=== PATIENT | male | born 1950 | race Caucasian/White ===

== ENCOUNTER 2019-01-24 16:54 | Outpatient (CLI) | payer MEDICARE ==
--- NOTE | 2019-01-24 18:23 | Ultrasound Report ---
Reason: ACUTE EMBOLISM AND THOMBOS UNSP DEEP VEINS OF R LO Procedure Date: 01/24/2019 Accession Number: [id number] / [id number] Procedure: US - Duplex Ext Veins Bilateral CPT Code: FULL RESULT: EXAM: BILATERAL LOWER EXTREMITY VENOUS ULTRASOUND EXAM DATE: 01/24/2019 05:42 PM. CLINICAL HISTORY: ACUTE EMBOLISM AND THOMBOS UNSP DEEP VEINS OF R LO. COMPARISON: 01/24/2019 5:48 PM DUPLEX EXT VEINS RIGHT 03/27/2016 5:49 PM. TECHNIQUE: Real-time sonographic vascular imaging was performed by the cage unloader through the lower extremities utilizing both color-flow and Doppler spectral analysis. Multiple client account representative static images were saved for review. FINDINGS: Right: Common Femoral Vein (CFV): Normal. CFV-GSV Junction: Normal. Profunda Femoral Vein (PFV): Normal. Femoral Vein (FV) Prox: Thrombosed. Femoral Vein (FV) Mid: Thrombosed. Femoral Vein (FV) Dist: Partially occlusive thrombus. Popliteal Vein: Partially occlusive thrombus. Posterior Tibial Veins: Visualized portions within normal limits. Peroneal Veins: Visualized portions within normal limits. Left: Common Femoral Vein (CFV): Normal. CFV-GSV Junction: Normal. Profunda Femoral Vein (PFV): Normal. Femoral Vein (FV) Prox: Normal. Femoral Vein (FV) Mid: Normal. Femoral Vein (FV) Dist: Normal. Popliteal Vein: Normal. Posterior Tibial Veins: Normal. Peroneal Veins: Normal. Other: None. IMPRESSION: There is occlusive thrombus within the proximal and mid right femoral vein. There is partially occlusive thrombus within the distal right femoral vein extending into the right popliteal vein. No evidence of left-sided thrombus is seen. JULIETA The call report notification system was initiated by Dr. Gumaro Elizabeth at 06:22 PM on 01/24/2019. ADDENDUM: 01/24/19 18:38 The above call report findings were discussed with Huan Fernandez by Dr. Gumaro Elizabeth at 06:38 PM on 01/24/2019.
== END 2019-01-24 16:55 | disposition home or self-care (01) ==
LOC: DI 16:54
PROVIDERS: ATTEND Specialist
DX: I82.411 Acute embolism and thrombosis of right femoral vein (principal)
CPT/HCPCS: 93970

== ENCOUNTER 2019-07-10 18:50 | Outpatient (CLI) | payer MEDICARE ==
--- NOTE | 2019-07-10 20:13 | Ultrasound Report ---
Reason: RLE DVT Procedure Date: 07/10/2019 Accession Number: [id number] / [id number] Procedure: US - Duplex Ext Veins Right CPT Code: FULL RESULT: EXAM: RIGHT LOWER EXTREMITY VENOUS ULTRASOUND EXAM DATE: 07/10/2019 07:05 PM. CLINICAL HISTORY: FOLLOW-UP RLE DVT. COMPARISON: DUPLEX EXT VEINS RIGHT 01/24/2019. TECHNIQUE: Real-time sonographic vascular imaging was performed by the picker tender helper through the lower extremity utilizing both color-flow and Doppler spectral analysis. Multiple sales representative aircraft static images were saved for review. FINDINGS: Common Femoral Vein (CFV): Normal. CFV-GSV Junction: Normal. Profunda Femoral Vein (PFV): Normal. Femoral Vein (FV) Prox: Normal. Femoral Vein (FV) Mid: Occlusive thrombus. Femoral Vein (FV) Dist: Nonocclusive thrombus. Popliteal Vein: Nonocclusive thrombus. Posterior Tibial Veins: Not well seen. Peroneal Veins: Well seen. IMPRESSION: Occlusive DVT in the mid right femoral vein with nonocclusive DVT in the distal right femoral vein and right popliteal vein, improved over prior exam. JULIETA The call report notification system was initiated by Dr. Brody Acosta at 08:11 PM on 07/10/2019. ADDENDUM: 07/10/19 20:17 The above call report findings were discussed with Dr Ambrocio Dee by Dr. Brody Acosta at 08:17 PM on 07/10/2019.
== END 2019-07-10 18:51 | disposition home or self-care (01) ==
LOC: DI 18:50
PROVIDERS: ATTEND Internal Medicine
DX: I82.411 Acute embolism and thrombosis of right femoral vein (principal)

== ENCOUNTER 2019-12-24 09:50 | Outpatient (CLI) | payer MEDICARE ==
--- NOTE | 2019-12-24 11:19 | Ultrasound Report ---
Reason: RLE DVT, NEW EDEMA, PAIN LLE Procedure Date: 12/24/2019 Accession Number: [id number] / [id number] Procedure: US - Duplex Ext Veins Bilateral CPT Code: Final Report FULL RESULT: EXAM: BILATERAL LOWER EXTREMITY VENOUS ULTRASOUND EXAM DATE: 12/24/2019 10:58 AM. CLINICAL HISTORY: 69-year-old with known right lower extremity DVT. Left lower extremity pain and edema. COMPARISON: Right lower extremity venous duplex from 07/10/2019. TECHNIQUE: Real-time sonographic vascular imaging was performed by the supervisor keymodule assembly through the lower extremities utilizing both color-flow and Doppler spectral analysis. Multiple telephone services sales representative static images were saved for review. FINDINGS: Right: Common Femoral Vein (CFV): Normal. CFV-GSV Junction: Normal. Profunda Femoral Vein (PFV): Normal. Femoral Vein (FV) Prox: Mildly echogenic, non-occlusive thrombus present, not seen previously. Femoral Vein (FV) Mid: Occlusive thrombus present, not significantly changed. Femoral Vein (FV) Dist: Nonocclusive thrombus present, not significantly changed. Popliteal Vein: Nonocclusive thrombus present, not significantly changed. Posterior Tibial Veins: Not well visualized. However, visualized vessels appear to demonstrate color flow. Peroneal Veins: Not well seen. Left: Common Femoral Vein (CFV): Nonocclusive thrombus present. CFV-GSV Junction: Nonocclusive thrombus present. Profunda Femoral Vein (PFV): Nonocclusive thrombus present. Femoral Vein (FV) Prox: Occlusive thrombus present. Femoral Vein (FV) Mid: Occlusive thrombus present. Femoral Vein (FV) Dist: Occlusive thrombus present. Popliteal Vein: Occlusive thrombus present. Posterior Tibial Veins: Occlusive thrombus present. Peroneal Veins: Occlusive thrombus present. Of note, left lower extremity deep vein thrombus appears hypoechoic and acute. Other: None. IMPRESSION: 1. Acute-appearing deep vein thrombus throughout the left lower extremity veins. Thrombus appears nonocclusive in the left common and deep femoral veins and occlusive in the remainder of the left lower extremity veins. 2. 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 Nonocclusive thrombus is demonstrated in the proximal aspect of the right femoral vein, which was not seen previously and could represent slight proximal propagation. RADIA The call report notification system was initiated by Dr. Brody Rios at 11:06 AM on 12/24/2019. The above call report findings were discussed with Dr. Dung Asencio by Dr. Brody Rios at 11:12 AM on 12/24/2019.
== END 2019-12-24 09:51 | disposition home or self-care (01) ==
LOC: DI 09:50
PROVIDERS: ATTEND Internal Medicine
DX: I82.511 Chronic embolism and thrombosis of right femoral vein (principal); I82.531 Chronic embolism and thrombosis of right popliteal vein; I82.492 Acute embolism and thrombosis of other specified deep vein of left lower extremity
CPT/HCPCS: 93970

== ENCOUNTER 2020-01-01 09:37 | Outpatient (CLI) | payer MEDICARE ==
--- NOTE | 2020-01-01 13:05 | Ultrasound Report ---
Reason: ACUTE EMBOLISM AND THOMBOS UNSP DEEP VN UNSP LOWER Procedure Date: 01/01/2020 Accession Number: [id number] / [id number] Procedure: US - Duplex Ext Veins Left CPT Code: Final Report FULL RESULT: EXAM: LEFT LOWER EXTREMITY VENOUS ULTRASOUND EXAM DATE: 01/01/2020 09:42 AM. CLINICAL HISTORY: Acute embolism and thrombus unspecified, deep vein unspecified lower. COMPARISON: DUPLEX EXT VEINS BILATERAL 12/24/2019 10:06 AM. TECHNIQUE: Real-time sonographic vascular imaging was performed by the shoelace tipping machine operator through the lower extremity utilizing both color-flow and Doppler spectral analysis. Multiple apprenticeship training representative static images were saved for review. FINDINGS: Common Femoral Vein (CFV): Normal. CFV-GSV Junction: Normal. Profunda Femoral Vein (PFV): Normal. Femoral Vein (FV) Prox: Occlusive thrombus. Femoral Vein (FV) Mid: Occlusive thrombus. Femoral Vein (FV) Dist: Occlusive thrombus. Popliteal Vein: Occlusive thrombus. Posterior Tibial Veins: Near occlusive thrombus. Peroneal Veins: Near occlusive thrombus. Contralateral Side CFV: Normal. Other: None. IMPRESSION: Stable extensive occlusive or near occlusive thrombus extending from the proximal left femoral vein to the distal left posterior tibial and peroneal veins. Previously noted thrombus in the left common femoral vein, profunda femoral vein and the common femoral vein-greater saphenous vein junction have resolved. RADIA
== END 2020-01-01 09:38 | disposition home or self-care (01) ==
LOC: DI 09:37
PROVIDERS: ATTEND Internal Medicine
DX: I82.412 Acute embolism and thrombosis of left femoral vein (principal); I82.442 Acute embolism and thrombosis of left tibial vein

== ENCOUNTER 2024-04-27 05:02 | Outpatient (CLI) | payer MEDICARE | END 2024-04-27 05:03 | disposition E | LOC: EMS 05:02 | DX: I46.9 Cardiac arrest, cause unspecified (principal) ==